=== PATIENT | female | born 1985 | race Caucasian/White ===

== ENCOUNTER 2017-03-10 22:01 | Emergency (ER) | payer OTHER ==
[~2017-03-10] VITALS: Ht 165.1 cm; Wt 69.5 kg
[2017-03-10 22:14] VITALS: Ht 165.1 cm; Wt 69.5 kg
--- NOTE | 2017-03-11 00:30 | ERD ---
ER Documentation Chief Complaint Chief Complaint pelvic pain since 1 hour ago HPI This is a 31-year-old female presenting to the emergency department for vaginal pain and pelvic pain 1 hour. Patient states she has sharp, "needlelike" pain to the inside of her vagina. Patient states she has pressure sensation to vagina. Patient states pain started immediately after intercourse. Patient denies any rash or lesions. Denies dysuria or hematuria. No new sexual partners. No abnormal vaginal discharge or vaginal bleeding. No fevers or chills. No abdominal pain, nausea, vomiting or diarrhea. No back or flank pain. Last menstrual period February 22, 2017. ROS All systems reviewed and are negative except as per history of present illness. Medications Home Meds Active Scripts Ibuprofen* (Motrin*) 400 Mg Tab, 400 MG PO Q6, #30 TAB Prov:AUGUSTO SMITH NP 03/11/17 Allergies Allergies: Coded Allergies: No Known Allergy (Unverified , 03/10/17) PMhx/Soc Medical and Surgical Hx: pt denies Medical Hx, pt denies Surgical Hx Hx Alcohol Use: No Hx Substance Use: No Hx Tobacco Use: No Smoking Status: Never smoker Physical Exam Vitals Vital Signs Date Time Temp Pulse Resp B/P Pulse Ox O2 Delivery O2 Flow Rate FiO2 03/11/17 00:56 98.1 80 17 131/75 98 Room Air 03/10/17 22:14 98.2 73 20 138/85 100 Physical Exam Const: No acute distress, alert Head: Atraumatic Eyes: Normal Conjunctiva ENT: Normal External Ears, Nose and Mouth. Neck: Full range of motion..~ No meningismus. Resp: Clear to auscultation bilaterally. No wheezing, rhonchi or crackles. Cardio: Regular rate and rhythm, no murmurs Abd: Soft, non tender, non distended. Normal bowel sounds Skin: No petechiae or rashes Back: No midline or flank tenderness. No CVA tenderness Ext: No cyanosis, or edema Neur: Awake and alert Psych: Normal Mood and Affect Results 24 hrs Laboratory Tests Test 03/11/17 00:36 Bedside Urine pH (LAB) 6.5 Bedside Urine Protein (LAB) Trace Bedside Urine Glucose (UA) Negative Bedside Urine Ketones (LAB) Negative Bedside Urine Blood Trace-lysed Bedside Urine Nitrite (LAB) Negative Bedside Urine Leukocyte Esterase (L Negative Procedures/MDM MDM: This is a 31-year-old female presenting to the emergency department for vaginal pain is 1 hour. Patient describes pain as sharp and needlelike. Patient denies any dysuria or hematuria. Urine dip shows trace protein and trace blood. Urine is negative. Pelvic exam is unremarkable. Patient states pain has improved while in the ED. Differential diagnosis includes but not limited to vaginitis, urethritis, pelvic inflammatory disease, nephrolithiasis, painful bladder syndrome, gonorrhea, chlamydia, herpes simplex virus, genital warts or trichomoniasis. Low suspicion for pyelonephritis due to patient being afebrile without chills. No flank pain, no CVA tenderness. Patient denies nausea or vomiting. Patient is appropriate for outpatient management. Instructed patient to increase fluid intake and rest as needed. Instructed patient to follow-up with primary care provider in the next 2-3 days for reassessment. Patient states she has an appointment in 4 days with her new [employer] for Pap smear. Return to ED for any high fever, chest pain, difficulty breathing, shortness breath, wheezing, vomiting, diarrhea, abdominal pain or any new or worsening symptoms. Patient verbalizes understanding. All questions answered at discharge. Disclaimer: Inadvertent spelling and grammatical errors are likely due to EHR/ dictation software use and do not reflect on the overall quality of patient care. Also, please note that the electronic time recorded on this note does not necessarily reflect the actual time of the patient encounter. Departure Diagnosis: Primary Impression: Acute pain in female pelvis Condition: Stable AUGUSTO SMITH NP Mar 11, 2017 00:30
[2017-03-11] MEDS ORDERED: IBUP400T22 PO (00:47)
[2017-03-11 00:56] VITALS: BP 131/75; PULSE 80; RESP 17; TEMP 98.1
== END 2017-03-11 00:56 | disposition home or self-care (01) ==
LOC: FTE 22:01
DX: R10.2 Pelvic and perineal pain (principal)
CPT/HCPCS: 81003; 99284